=== PATIENT | female | born 1930 | race Two or more races ===

== ENCOUNTER 2021-04-19 10:51 | Emergency (ER) | payer OTHER ==
[~2021-04-19] VITALS: Ht 142.2 cm; Wt 66.2 kg
[2021-04-19 12:36] LABS: Urine WBC None Seen /hpf (0 - 5)
[2021-04-19 12:46] LABS: Urine Bacteria NONE SEEN /hpf (None Seen); Urine Blood Negative /uL (Negative); Urine Specific Gravity 1.011 (1.001-1.035)
[2021-04-19 13:25] LABS: Albumin 3.6 g/dL (3.4-5.0); Anion Gap 3 (5-15); Blood Urea Nitrogen 29 mg/dL (7-18); Calcium 8.9 mg/dL (8.5-10.1); Carbon Dioxide 31 mmol/L (21-32); Chloride 106 mmol/L (98-107); Glucose 95 mg/dL (74-106); Potassium 4.3 mmol/L (3.5-5.1); Sodium 140 mmol/L (136-145)
[2021-04-19 13:30] LABS: Alanine Aminotransferase 16 U/L (13-56); Alkaline Phosphatase 52 U/L (45-117); Aspartate Aminotransferase 23 U/L (15-37); Bilirubin, Total 0.7 mg/dL (0.2-1.0); GFR African American 44 mL/min; GFR Non-African American 36 mL/min; Total Protein 8.2 g/dL (6.4-8.2)
[2021-04-19] MEDS ORDERED: SODIUM CHLORIDE 0.9% 1,000 ML IV ONE (13:30)
[2021-04-19 14:31] LABS: Basophils # (auto) 0.1 10 ^3/uL (0-0.2); Eosinophils # (auto) 0.1 10 ^3/uL (0-0.8); Monocytes # (auto) 0.4 10 ^3/uL (0-1.3); White Blood Cell 4.6 10^3/uL (4.4-10.8)
[2021-04-19 14:37] LABS: Basophils % (auto) 1.7 % (0.0-2.0); Eosinophils % (auto) 1.8 % (0.0-7.0); Hematocrit 32.1 % (36.0-46.0); Hemoglobin 10.1 g/dL (12.2-16.2); Lymphocytes # (auto) 0.8 10 ^3/uL (0.4-5.4); Lymphocytes % (auto) 18.1 % (10.0-50.0); Mean Corpuscular Hemoglobin 25.8 pg (28.0-32.0); Mean Corpuscular Hgb Conc. 31.6 g/dL (32.0-36.0); Mean Corpuscular Volume 81.5 fL (80.0-100.0); Monocytes % (auto) 8.3 % (0.0-12.0); Neutrophils # (auto) 3.2 10 ^3/uL (1.6-8.6); Neutrophils % (auto) 70.1 % (37.0-80.0); Nucleated Red Blood Cells % 0.2 %; Red Blood Cells 3.94 10^6/uL (4.0-5.20); Red Cell Distribution Width 17.1 % (11.8-14.3)
[2021-04-19] MEDS ORDERED: ALBUTEROL SULF 2.5 MG/0.5ML(0.5%) NEB SOLN NEB ONE (17:00)
[2021-04-19] MEDS ORDERED: IPRATROPIUM BROM 0.5 MG/2.5ML INH SOL NEB ONE (17:00)
[2021-04-20 03:47] VITALS: BP 157/87
== END 2021-04-20 03:53 | disposition short-term general hospital (02) ==
LOC: ER 10:51 → EDBD 10:51 → ER 04-20 03:53
DX: R09.02 Hypoxemia (principal); D50.9 Iron deficiency anemia, unspecified; I27.20 Pulmonary hypertension, unspecified; N18.9 Chronic kidney disease, unspecified; Z20.822 Contact with and (suspected) exposure to COVID-19
CPT/HCPCS: 36415; 71046; 71250; 80053; 81001; 83735; 83880; 84443; 84484; 85025; 85379; 87426; 93005; 94640; 96360; 96361; 99285; J7030; J7644